=== PATIENT | female | born 1945 | race Caucasian/White ===

== ENCOUNTER 2019-08-19 19:10 | Emergency (ER) | payer MEDICARE ==
[~2019-08-19] VITALS: Ht 160 cm; Wt 60.3 kg
[2019-08-19] MEDS ORDERED: PROPAFENONE HC225 M1 PO (19:26)
[2019-08-19] MEDS ORDERED: LISINOPRIL-HCT1 EAC2 PO (19:27)
[2019-08-19] MEDS ORDERED: PRADAXA150 MG PO (19:27)
[2019-08-19] MEDS ORDERED: HYDROCHLOROTHIA25 M2 PO (19:27)
[2019-08-19] MEDS ORDERED: DILTIAZEM ER180 M2 PO (19:27)
[2019-08-19 19:32] LABS: ABSOLUTE EOSINOPHILS 0.1 thou/uL (0.0-0.7); ABSOLUTE MONOCYTES 0.7 thou/uL (0.0-1.2); ABSOLUTE NEUTROPHILS 3.3 thou/uL (1.6-8.1); BASOPHILS 0.4 %; HEMATOCRIT 41.1 % (37.0-47.0); HEMOGLOBIN 14.5 gm/dL (12.0-15.0); LYMPHOCYTES 41.9 %; MCH 31.1 pg (26.0-34.0); MCHC 35.2 g/dL (28.0-37.0); MCV 88.5 fL (80.0-100.0); MONOCYTES 9.7 %; MPV 9.8 fl. (7.2-11.1); NUCLEATED RBCS 0 /100WBC; PLATELET COUNT* 305 thou/uL (150-400); RBC 4.64 mil/uL (4.20-5.00); RDW-CV 13.8 % (10.5-14.5); WBC 7.2 thou/uL (4.0-11.0)
[2019-08-19 19:42] LABS: INR 1.1; PROTIME 11.1 Seconds (9.20-11.50)
[2019-08-19 19:47] LABS: CALCIUM 9.4 mg/dL (8.5-10.1); CREATININE 0.6 mg/dL (0.6-1.3); POTASSIUM 3.5 mmol/L (3.5-5.1)
[2019-08-19 19:52] LABS: ALBUMIN 3.8 g/dL (3.4-5.0); MAGNESIUM 2.2 mg/dL (1.8-2.4); TOTAL BILIRUBIN 0.3 mg/dL (<0.1-1.0); TOTAL PROTEIN 7.7 g/dL (6.4-8.2)
[2019-08-19 21:02] LABS: URINE BILIRUBIN NEGATIVE (Negative); URINE BLOOD NEGATIVE (Negative); URINE CLARITY CLEAR; URINE COLOR YELLOW; URINE GLUCOSE-RANDOM NEGATIVE (Negative); URINE KETONES 2+ (Negative); URINE LEUKOCYTES-REFLEX 1+ (Negative); URINE NITRITE-REFLEX NEGATIVE (Negative); URINE PROTEIN NEGATIVE (Negative); URINE SPECIFIC GRAVITY 1.015 (1.005-1.030); URINE UROBILINOGEN 0.2 E.U./dl (0.2-1.0)
[2019-08-19 21:10] LABS: SQUAMOUS 4-10 Moderate /LPF (0-3)
[2019-08-19 21:11] LABS: BACTERIA-REFLEX 1-9 Few /HPF (None Seen); URINE RBC None Seen /HPF (0-2); URINE WBC-REFLEX 0-5 Rare /HPF (0-5)
[2019-08-19 21:12] LABS: CASTS None Seen /LPF (None Seen); CRYSTALS None Seen /LPF (None Seen); MUCUS 0-3 Light strn/LPF (None Seen)
[2019-08-19 21:51] VITALS: BP 132/70
--- NOTE | 2019-08-20 14:12 | EKG ---
[place] [address] ELECTROCARDIOGRAM REPORT Name: GARCIA NINO Room: [facility]#: [id number] Admission: 08/19/19 Attend Phys: Discharge: 08/19/19 Date of : 41 Date of Service: 08/19/191912 Report #: [id number] THIS REPORT FOR: //name// [facility] ED Test Date: 2019-08-19 Test Time: 19:13:20 Pat Name: GARCIA NINO Department: Room: Gender: F Gallery Director: ALESSANDRO : 1945 Requested By: Cassidy Grant Order Number: [id number] MD: Pedro Kulkarni Measurements Intervals [place] Rate: 99 P: 44 FL: 238 QRS: -7 QRSD: 84 T: 36 QT: 339 QTc: 435 Interpretive Statements Sinus rhythm Prolonged FL interval LVH by voltage Inferior infarct, old No previous ECG available for comparison Electronically Signed On 08-20-2019 14:10:43 CDT by Pedro Kulkarni [email or web address] <ELECTRONICALLY SIGNED> By: Pedro Kulkarni MD, [facility] 08/20/19 1410 12 12 Pedro Kulkarni MD, FAC /EPI
== END 2019-08-19 21:52 | disposition home or self-care (01) ==
LOC: M.ERS 19:10
PROVIDERS: Emergency Medicine
DX: R00.2 Palpitations (principal); I48.91 Unspecified atrial fibrillation; Z96.649 Presence of unspecified artificial hip joint; Z91.048 Other nonmedicinal substance allergy status; Z88.8 Allergy status to other drugs, medicaments and biological substances

== ENCOUNTER 2020-06-04 19:46 | Inpatient (IN) | payer MEDICARE ==
[~2020-06-04] VITALS: Ht 167.6 cm; Wt 58.5 kg
[~2020-06-04 19:46] MED LIST: DILTIAZEM ER180 M2 PO; HYDROCHLOROTHIA25 M2 PO; LISINOPRIL-HCT1 EAC2 PO; PRADAXA150 MG PO; PROPAFENONE HC225 M1 PO
[2020-06-04 19:53] VITALS: BP 137/84
[2020-06-04 20:13] LABS: ABSOLUTE BASOPHILS 0.2 thou/uL (0.0-0.2); ABSOLUTE EOSINOPHILS 0.2 thou/uL (0.0-0.7); ABSOLUTE LYMPHOCYTES 2.8 thou/uL (0.8-5.3); ABSOLUTE MONOCYTES 0.8 thou/uL (0.0-1.2); ABSOLUTE NEUTROPHILS 2.8 thou/uL (1.6-8.1); BASOPHILS 2.9 %; EOSINOPHILS 3.2 %; HEMATOCRIT 40.4 % (37.0-47.0); HEMOGLOBIN 13.7 gm/dL (12.0-15.0); LYMPHOCYTES 40.6 %; MCH 29.5 pg (26.0-34.0); MCHC 33.9 g/dL (28.0-37.0); MCV 87.1 fL (80.0-100.0); MONOCYTES 11.5 %; MPV 9.2 fl. (7.2-11.1); NUCLEATED RBCS 0 /100WBC; PLATELET COUNT* 335 thou/uL (150-400); POLYS 41.8 %; RBC 4.64 mil/uL (4.20-5.00); RDW-CV 15.3 % (10.5-14.5); WBC 6.8 thou/uL (4.0-11.0)
[2020-06-04 20:21] LABS: CALCIUM 8.9 mg/dL (8.5-10.1); CREATININE 0.7 mg/dL (0.6-1.3); POTASSIUM 3.4 mmol/L (3.5-5.1)
[2020-06-04 20:32] LABS: ALBUMIN 3.4 g/dL (3.4-5.0); TOTAL BILIRUBIN 0.2 mg/dL (<0.1-1.0)
[2020-06-04 21:01] LABS: APTT 32.7 Seconds (25.0-31.3); INR 1.1; PROTIME 11.2 Seconds (9.20-11.50)
[2020-06-04 23:04] VITALS: BP 120/68
[2020-06-05 06:19] VITALS: BP 115/72
[2020-06-05 07:48] VITALS: BP 134/81
[2020-06-05 12:00] VITALS: BP 123/80
--- NOTE | 2020-06-05 14:00 | EKG ---
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: [place] : 1945 Requested By: Suma Sanchez Order Number: [id number] MD: Aston Austin Measurements Intervals [place] Rate: 113 P: 90 VT: 156 QRS: 8 QRSD: 84 T: -20 QT: 335 QTc: 460 Interpretive Statements Sinus tachycardia Borderline repol abnrm, inferolateral leads Minimal ST elevation, inferior leads Compared to ECG 08/19/2019 19:13:20 ST (T wave) deviation now present Sinus rhythm no longer present First degree AV block no longer present Left ventricular hypertrophy no longer present Myocardial infarct finding no longer present Electronically Signed On 06-05-2020 14:00:16 HEAD ANIMAL KEEPER by Aston Austin [email or web address] <ELECTRONICALLY SIGNED> By: Cindy Austin MD, [facility] 06/05/20 1400 51 51 Cindy Austin MD, [facility] /EPI
[2020-06-05 16:00] VITALS: BP 119/78
[2020-06-05 20:00] VITALS: BP 118/84
[2020-06-06 00:14] VITALS: BP 105/67
[2020-06-06 04:31] LABS: HEMATOCRIT 38.4 % (37.0-47.0); MCH 29.3 pg (26.0-34.0); MCHC 33.9 g/dL (28.0-37.0); MCV 86.5 fL (80.0-100.0); MPV 9.7 fl. (7.2-11.1); RBC 4.45 mil/uL (4.20-5.00); RDW-CV 15.3 % (10.5-14.5); WBC 6.3 thou/uL (4.0-11.0)
[2020-06-06 04:34] VITALS: BP 111/75
[2020-06-06 04:34] LABS: CREATININE 0.6 mg/dL (0.6-1.3); POTASSIUM 4.2 mmol/L (3.5-5.1)
[2020-06-06 07:35] VITALS: BP 109/72
[2020-06-06 11:46] VITALS: BP 108/70
--- NOTE | 2020-06-06 12:05 | CON ---
[address] [address] CONSULTATION Name: GARCIA NINO Room: [address] MMarceR.#: [id number] Admission: 06/04/20 Attend Phys: Shira Bro MD Discharge: Date of : 41 Report #: [id number] THIS REPORT FOR: cc: Dat Veras MD, Michael S. MD ~ Cindy Austin MD [facility] CARDIOLOGY CONSULTATION HISTORY OF PRESENT ILLNESS: I was asked by Dr. Shira Bro to see this 75-year-old white female in cardiology consultation for evaluation and treatment of tachycardia. This lady has a history of atrial fibrillation in the past. She has never been cardioverted, but she has had an atrial fibrillation ablation. She was seen by my associate, Dr. Kulkarni in the office in [place] on 05/25/2020. She was found to be in atrial flutter. She was set up to see Dr. Bradley for a second ablation. Her previous ablation was at [facility]. She is unable to see that doctor until mid July, however. She has been having issues with episodes of tachycardia. They bother quite a bit. They make her fatigued and exhausted she says, typically the heart rates are all that high. Her heart rate goes up into the 120 range. She came in last night with one of these episodes and has remained in with one of these episodes. She is felt to be in sinus tachycardia in the ER, but I have reviewed the EKG and it is clearly atrial fibrillation/atrial flutter. The heart rate 113. The rhythm is quite regular in all fairness, but there is no regular P-wave activity. There is some irregular looking P-wave activity, but I believe this is atrial fibrillation at this point. There is some strips that she has had here that look like she has atrial flutter. She is on high dose propafenone and as such likely has a regular rhythm on the basis of this antiarrhythmic. She has also been on diltiazem extended release 180 mg daily. Her propafenone dose is the extended release version 425 mg b.i.d. Today, I added Toprol-XL 25 mg daily to her regimen to control her heart rate. She does have a history of hypertension. In the past, she was on lisinopril, which unfortunately she became intolerant to because of hypotension. More recently, she has been on the diltiazem plus hydrochlorothiazide 25 mg daily. I am going to stop that since we are adding Toprol. She may require digitalis for control of her heart rate. She is on Pradaxa 150 mg b.i.d. for her anticoagulation. Currently, her heart rate is 103. She is fairly comfortable currently. When it gets up around 120, though she becomes uncomfortable. She does have shortness of breath and dyspnea on exertion, fatigue and malaise. PAST MEDICAL HISTORY: Essentially as described above. REVIEW OF SYSTEMS: Also as described above. Please see review of system form for details and negatives in review of systems. The only positives are as described above. [address] [place] [address] CONSULTATION Name: GARCIA NINO Room: [address] Ezra HowardRMarce#: [id number] Admission: 06/04/20 Attend Phys: Shira Bro MD Discharge: Date of : 41 Report #: [id number] FAMILY HISTORY: Unremarkable. SOCIAL HISTORY: She is , does not smoke, drink or use illegal drugs. PHYSICAL EXAMINATION: GENERAL: She presents as a well-developed, well-nourished white female, in no acute distress. VITAL SIGNS: Her pulse is 99 and regular, blood pressure is 134/81, respirations 18 and regular, temperature is 97.6. HEENT: Her head was atraumatic. Eyes clear. NECK: Supple. There is no jugular venous distention or hepatojugular reflux. Thyroid is not enlarged. There is no adenopathy. SKIN: Warm and dry. Mucous membranes are moist. LUNGS: Clear to auscultation and percussion. HEART: Revealed normal first and second heart sound. There is soft S4. There is no S3. There are no murmurs, rubs, thrills, heaves or gallops. PMI is nondisplaced. ABDOMEN: Soft, flat and nontender. No palpable masses, no organomegaly. EXTREMITIES: Reveal no cyanosis, clubbing or edema. NEUROLOGIC: The patient mentated normally, talked normally, moved all extremities normally. IMPRESSION: 1. Atrial fibrillation/flutter with rapid ventricular rate. 2. Essential hypertension. RECOMMENDATION: As described above. We are going to add Toprol-XL to control the rate. If she does not tolerate it because of blood pressure issues, we will probably switch her to digoxin. She is to continue her Pradaxa. She is to get thyroid function studies. She is to get an echo and she is to get a Lexiscan Cardiolite stress test on Sunday because of the possibility that ischemia is playing a role in the production of her atrial fibrillation. Thank you very much for asking me to see the patient has allergic to any questions, please feel free to contact me. <ELECTRONICALLY SIGNED> By: Cindy Austin MD, FAC 06/06/20 1205 1209 [id number]. Aston Austin MD, [facility] /nt
[2020-06-06 16:00] VITALS: BP 136/76
[2020-06-06 20:00] VITALS: BP 121/80
[2020-06-07] VITALS (8 sets, daily range): BP systolic 87–138; BP diastolic 43–72
[2020-06-07 04:41] LABS: CALCIUM 9.3 mg/dL (8.5-10.1); CREATININE 0.6 mg/dL (0.6-1.3); POTASSIUM 4.1 mmol/L (3.5-5.1)
[2020-06-07 05:50] LABS: HEMATOCRIT 40.3 % (37.0-47.0); HEMOGLOBIN 13.2 gm/dL (12.0-15.0); MCH 28.6 pg (26.0-34.0); MCHC 32.7 g/dL (28.0-37.0); MCV 87.4 fL (80.0-100.0); MPV 10.1 fl. (7.2-11.1); RBC 4.61 mil/uL (4.20-5.00); RDW-CV 15.4 % (10.5-14.5); WBC 7.5 thou/uL (4.0-11.0)
--- NOTE | 2020-06-07 12:15 | 2DMMODE ---
[place] [address] 2 D/M-MODE ECHOCARDIOGRAM Name: GARCIA NINO Room: [address] IN [place].R.#: [id number] Admission: 06/06/20 Attend Phys: Shira Bro, Discharge: Date of : 41 Date of Service: 06/07/20 1215 Report #: [id number] THIS REPORT FOR: cc: Dat Veras MD, Michael S. MD Holkins, John M. MD [facility] ~ APPROVED REPORT Study performed: 06/07/2020 10:21:31 EXAM: Comprehensive 2D, Doppler, and color-flow Echocardiogram Patient Location: In-Patient Room #: [facility] Status: routine BSA: 1.65 HR: 93 bpm BP: 119/72 mmHg Rhythm: NSR Other Information Study Quality: Good Indications Chest Pain 2D Dimensions IVSd: 9.68 (7-11mm) LVOT Diam: 18.93 (18-24mm) LVDd: 42.65 mm PWd: 9.10 (7-11mm) Ascending Ao: 32.63 (22-36mm) LVDs: 26.64 (25-40mm) Aortic Root: 28.65 mm Volumes Left Atrial Volume (Systole) LA ESV Index: 40.40 mL/m2 Aortic Valve AoV Peak Mayank.: 1.03 m/s AO Peak Gr.: 4.28 mmHg LVOT Max P.45 mmHg AO Mean Gr.: 2.04 mmHg LVOT Mean P.85 mmHg LVOT Max V: 1.05 m/s AO V2 VTI: 16.90 cm LVOT Mean V: 0.61 m/s DRAKE (VTI): 2.99 cm2 LVOT V1 VTI: 17.95 cm AI [place]: 3.83 m/s2 [place] [address] 2 D/M-MODE ECHOCARDIOGRAM Name: GARCIA NINO Room: [address] IN .R.#: [id number] Admission: 06/06/20 Attend Phys: Shira Bro, Discharge: Date of : 41 Date of Service: 06/07/20 1215 Report #: [id number] AI PHT: 356.89 ms Mitral Valve E/A Ratio: 1.60 MV Decel. Time: 128.33 ms MV E Max Mayank.: 0.80 m/s MV PHT: 37.21 ms MVA (PHT): 5.91 cm2 TDI E/Lateral E': 4.44 E/Medial E': 6.67 Medial E' Mayank.: 0.12 m/s Lateral E' Mayank.: 0.18 m/s Pulmonary Valve PV Peak Mayank.: 0.77 m/s PV Peak Gr.: 2.39 mmHg Tricuspid Valve RAP Estimate: 5.00 mmHg TR Peak Gr.: 16.31 mmHg RVSP: 21.00 mmHg PA Pressure: 21.00 mmHg Left Ventricle The left ventricle is normal size. There is normal LV segmental wall motion. There is normal left ventricular wall thickness. Left ventricular systolic function is normal. The left ventricular ejection fraction is within the normal range. LVEF is 55-60%. The left ventricular diastolic function is normal. Right Ventricle The right ventricle is normal size. The right ventricular systolic function is normal. Atria Left atrium is mildly dilated. The right atrium size is normal. Aortic Valve Mild aortic valve sclerosis. Mild to moderate aortic regurgitation. There is no aortic valvular stenosis. Mitral Valve The mitral valve is normal in structure. Mild mitral regurgitation. No evidence of mitral valve stenosis. [place] [address] 2 D/M-MODE ECHOCARDIOGRAM Name: GARCIA NINO Room: [address]#: [id number] Admission: 06/06/20 Attend Phys: hSira Bro, Discharge: Date of : 41 Date of Service: 06/07/20 1215 Report #: [id number] The tricuspid valve is normal in structure. Mild tricuspid regurgitation. No pulmonary hypertension. Pulmonic Valve The pulmonary valve is normal in structure. Trace pulmonic regurgitation. Great Vessels Aortic root is mildly dilated. IVC is normal in size and collapses >50% with inspiration. Pericardium There is no pericardial effusion. <Conclusion> The left ventricle is normal size. There is normal left ventricular wall thickness. Left ventricular systolic function is normal. The left ventricular ejection fraction is within the normal range. LVEF is 55-60%. The left ventricular diastolic function is normal. The right ventricle is normal size. Left atrium is mildly dilated. Mild aortic valve sclerosis. Mild to moderate aortic regurgitation. There is no aortic valvular stenosis. The mitral valve is normal in structure. Mild mitral regurgitation. The tricuspid valve is normal in structure. Mild tricuspid regurgitation. No pulmonary hypertension. IVC is normal in size and collapses >50% with inspiration. There is no pericardial effusion. There is normal LV segmental wall motion. Aortic root is mildly dilated. <ELECTRONICALLY SIGNED> By: Hill Lambert MD, FACC 06/07/20 1215 1215 1215 Hill Lambert MD, FACC /INF
--- NOTE | 2020-06-07 13:40 | EKG ---
[place] [address] ELECTROCARDIOGRAM REPORT Name: MICAGARCIA R Room: [address] ADM IN M.R.#: [id number] Admission: 06/06/20 Attend Phys: Shira Bro, Discharge: Date of : 41 Date of Service: 06/06/20 0915 Report #: [id number] THIS REPORT FOR: //name// [facility] Test Date: 2020-06-06 Test Time: 09:15:23 Pat Name: GARCIA NINO Department: Room: [address] Gender: F Firmware Engineer: HARISH : 1945 Requested By: Shira Bro Order Number: [id number] Reading MD: Hill Lambert Measurements Intervals [place] Rate: 93 P: 91 RI: 157 QRS: 23 QRSD: 84 T: 31 QT: 373 QTc: 464 Interpretive Statements Sinus rhythm Compared to ECG 06/04/2020 19:52:58 Sinus tachycardia no longer present ST (T wave) deviation no longer present Electronically Signed On 06-07-2020 13:40:29 LATHMAKER by Hill Lambert [email or web address] <ELECTRONICALLY SIGNED> By: Hill Lambert MD, [facility] 06/07/20 1340 0915 Hill Lambert MD, [facility] /EPI
[2020-06-07] MEDS ORDERED: METOPROLOL SUCC25 M1 PO (14:06)
--- NOTE | 2020-06-07 17:04 | CARDNUC ---
[place] [address] CARDIAC NUCLEAR IMAGING REPORT Name: GARCIA NINO Room: [address] IN [facility]#: [id number] Admission: 06/06/20 Attend Phys: Shira Bro, Discharge: Date of : 41 Date of Service: 06/07/20 1704 Report #: [id number] THIS REPORT FOR: cc: Dat Veras MD, Michael S. MD Liston, Michael J. MD [facility] ~ APPROVED REPORT Imaging Protocol: Stress Tc-99m/Rest Tc-99m 1 day Study performed: 06/05/2020 12:26:00 Indication: AFib with RVR/Aflutter Patient Location: In-Patient Room #: 225 Stress Tech: Rosa M Paul Stress Nurse: Oumou Baptiste RN Ht: 5 ft 6 in Wt: 29 lbs BSA: 0.88 m2 BMI: 4.67 Medical History Medical History: HTN, Acute hypokalemia, AFib with RVR, Aflutter, Resting tremors, acute sinus tachycardia, Ablation, fatigue. Medications: PRADAXA, PROPAFENONE, DILTIAZEM, HCTZ, METOPROLOL XL, K-DUR X1 Allergies: IODINE, PROPOXYPHENE, ADHESIVE TAPE, DIPHENHYDRAMINE Cardiac Risk Factors: Age, HTN, AFib with RVR, tachycardia, Aflutter. Previous Cardiac Procedures: Ablation Pretest Chest Pain Characteristics: No chest pain Exercise History: Indeterminate Physical Disabilities: HX AFib with RVR, unsteady/unstable gait. Meds Held (24 hrs): Metoprolol, Diltiazem, Propafenone, Pradaxa, HCTZ. Resting Data Rest SPECT myocardial perfusion imaging was performed in supine position 30 minutes following the intravenous injection of 10.4 mCi of Tc-99m Sestamibi. Time of rest injection: 10:15 The images were gated to evaluate regional wall motion and calculate left [place] [address] CARDIAC NUCLEAR IMAGING REPORT Name: GARCIA NINO Room: [address]#: [id number] Admission: 06/06/20 Attend Phys: Shira Bro, Discharge: Date of : 41 Date of Service: 06/07/20 1704 Report #: [id number] Administration Route: IV Administration Site: Left AC Pharmacologic Stress Pharmacologic stress test was performed by injecting Regadenoson 0.4 mg IV push over 10-15 seconds immediately followed by the intravenous injection of 29.7 mCi of Tc-99m Sestamibi. Time of stress injection: 12:05 Administration Route: IV Administration Site: Left AC Heart Rate at time of stress injection: 102 bpm. Gated Stress SPECT was performed 45 minutes after stress injection. The images were gated to evaluate regional wall motion and calculate left ventricular ejection fraction. Prone imaging was performed. Stress Test Details Stress Test: Pharmacologic stress testing performed using 0.4 mg of regadenoson per 5 mL given IV over 10 seconds. Reason for pharmacologic stress test: HX AFib with RVR, unsteady/unstable gait.. HR Max Heart Rate (APMHR): 143 bpm Resting HR: 107 bpm Target HR (85% APMHR): 121 bpm Max HR Achieved: 108 bpm % of APMHR: 75 Recovery HR: 106 bpm BP Resting BP: 128/89 mmHg Max BP: 106/63 mmHg Recovery BP: 106/64 mmHg ECG Resting ECG: Sinus Rhythm Stress ECG: Sinus Bradycardia ST Change: None Arrhythmia: None Recovery ECG: Sinus Rhythm Recovery ST Change: None Recovery Arrhythmia: None Clinical Reason for Termination: Completed protocol Stress Symptoms: Headache. Exercise duration: 00 min 00 [place] [address] CARDIAC NUCLEAR IMAGING REPORT Name: BENITEZ NINORA Padron Room: [address]#: [id number] Admission: 06/06/20 Attend Phys: Shira Bro, Discharge: Date of : 41 Date of Service: 06/07/20 1704 Report #: [id number] Exercise capacity: 1.00 METs Patient tolerated Lexiscan infusion without significant cardiac symptoms. Nurse Comments A 75 year old female inpatient presented for a Lexiscan nuclear stress test in supine position. Test well tolerated. Recovery unremarkable. Patient was stable and stated she felt good when escorted via wheelchair to Nuclear Medicine for imaging. Stress ECG Conclusion The baseline twelve-lead EKG shows sinus rhythm without significant ST segment abnormality. EKGs obtained during and post Lexiscan infusion show sinus rhythm and sinus tachycardia with no significant ST segment changes when compared to baseline. There were no stress-induced arrhythmias. Study Quality Study: Good Artifact: Mild Diaphragmatic artifact Study Data At rest, the left ventricular ejection fraction was 82%.. Post stress, the left ventricular ejection was 66%.. TID = 1.05. Perfusion Perfusion images show no defect to suggest infarct or ischemia. Wall Motion Normal left ventricular wall motion. Nuclear Conclusion ECG Findings: negative for ischemia Clinical Findings: negative for ischemia Nuclear Findings: negative for ischemia Exercise Capacity: not assessed Left Ventricular Function: normal Risk Study: low Perfusion images show no defect to suggest infarct or ischemia. Left ventricular systolic function appears normal on gated studies. This is a low risk study. <Conclusion> The baseline twelve-lead EKG shows sinus rhythm without significant ST segment abnormality. EKGs obtained during [place] [address] CARDIAC NUCLEAR IMAGING REPORT Name: GARCIA NINO Room: [address] IN [facility]#: [id number] Admission: 06/06/20 Attend Phys: Shira Bro, Discharge: Date of : 41 Date of Service: 06/07/20 1704 Report #: [id number] infusion show sinus rhythm and sinus tachycardia with no significant ST segment changes when compared to baseline. There were no stress-induced arrhythmias. <ELECTRONICALLY SIGNED> By: Dat Betts MD, FACC 06/07/20 1704 03 170 Dat Betts MD, FACC /INF
== END 2020-06-07 18:34 | disposition home or self-care (01) | DRG 641 ==
LOC: M.ERS 19:46 → M.TBA-ER 22:32 → M.2W 23:10
PROVIDERS: Family Medicine; Personal Emergency Response Attendant; ADMIT Internal Medicine; ATTEND Internal Medicine
DX: E87.6 Hypokalemia (principal); I48.20 Chronic atrial fibrillation, unspecified; I48.92 Unspecified atrial flutter; I10 Essential (primary) hypertension; I48.0 Paroxysmal atrial fibrillation; I35.1 Nonrheumatic aortic (valve) insufficiency; Z20.822 Contact with and (suspected) exposure to COVID-19; Z79.899 Other long term (current) drug therapy; Z88.8 Allergy status to other drugs, medicaments and biological substances; Z91.048 Other nonmedicinal substance allergy status